=== PATIENT | female | born 1965 | race Caucasian/White ===

== ENCOUNTER 2017-11-23 17:48 | Inpatient (IN) | payer MEDICAID | END 2017-11-25 17:00 | disposition home or self-care (01) | DRG 494 | LOC: D.ER 17:48 → D.SDCHOLD 20:53 → D.MS 21:20 | PROC: 0QSK04Z Reposition Left Fibula with Internal Fixation Device, Open Approach (ICD-10-PCS; principal; 2017-11-24) | PROC: 0QSH04Z Reposition Left Tibia with Internal Fixation Device, Open Approach (ICD-10-PCS; 2017-11-24) | DX: S82.842A Displaced bimalleolar fracture of left lower leg, initial encounter for closed fracture (principal); X50.1XXA Overexertion from prolonged static or awkward postures, initial encounter ==

== ENCOUNTER 2017-11-27 08:59 | Emergency (ER) | payer MEDICAID ==
[2017-11-23 23:39] VITALS: BMI 28.7
[~2017-11-27 08:59] MED LIST: ELIQUIS2.5 MG PO; HYDROXYZINE HCL50 MG PO; OXYCODONE HCL5 MG PO
[2017-11-27 10:45] LABS: BASOPHILS 0.5 % (0-2); EOSINOPHILS 2.5 % (0-7); HEMATOCRIT 39.7 % (36.0-48.0); HEMOGLOBIN 13.3 g/dL (12-16); IMMATURE GRANULOCYTES 0.3 % (0-5); LYMPHOCYTES 31.9 % (15-50); MCH 31.6 pg (26.0-34.0); MCHC 33.5 g/dL (31.0-37.0); MCV 94.3 fL (80.0-100.0); MEAN PLATELET VOLUME 10.2 fL (7.4-10.4); MONOCYTES 12.1 % (2-11); NEUTROPHILS 52.7 % (40-80); PLATELET COUNT 135 10x3/uL (130-400); RBC 4.21 10x6/uL (4.00-5.40); RDW 14.3 % (11.5-14.5); WBC 7.3 10x3/uL (4.8-10.8)
[2017-11-27 11:01] LABS: ALBUMIN 2.7 g/dL (3.4-5.0); ALKALINE PHOSPHATASE 134 U/L (46-116); ALT (SGPT) 110 U/L (10-68); BILIRUBIN - TOTAL 0.44 mg/dL (0.2-1.3); CALC OSMOLALITY 277 mosm/kg (275-300); CALCIUM 8.4 mg/dL (8.5-10.1); CHLORIDE - SERUM 105 mmol/L (98-107); CREATININE - SERUM 0.8 mg/dL (0.6-1.3); GLUCOSE 120 mg/dL (74-106); POTASSIUM - SERUM 3.6 mmol/L (3.5-5.1); PROTEIN - SERUM 6.8 g/dL (6.4-8.2); SODIUM 138 mmol/L (136-145); UREA NITROGEN 14 mg/dL (7-18); eGFR NON AFRICAN AMERICAN 80 mL/min (90-120)
== END 2017-11-27 10:55 | disposition home or self-care (01) ==
LOC: D.ER 08:59
PROVIDERS: Emergency Medicine
DX: G89.18 Other acute postprocedural pain (principal); F17.200 Nicotine dependence, unspecified, uncomplicated

== ENCOUNTER 2018-02-06 08:14 | Emergency (ER) | payer MEDICAID ==
[2017-11-23 23:39] VITALS: BMI 28.7
[2018-02-06 08:53] LABS: BASOPHILS 0.4 % (0-2); EOSINOPHILS 2.2 % (0-7); HEMATOCRIT 42.4 % (36.0-48.0); HEMOGLOBIN 14.5 g/dL (12-16); IMMATURE GRANULOCYTES 0.2 % (0-5); LYMPHOCYTES 40.2 % (15-50); MCH 32.7 pg (26.0-34.0); MCHC 34.2 g/dL (31.0-37.0); MCV 95.7 fL (80.0-100.0); MEAN PLATELET VOLUME 10.6 fL (7.4-10.4); MONOCYTES 11.8 % (2-11); NEUTROPHILS 45.2 % (40-80); PLATELET COUNT 120 10x3/uL (130-400); RBC 4.43 10x6/uL (4.00-5.40); RDW 18.1 % (11.5-14.5); WBC 5.5 10x3/uL (4.8-10.8)
[2018-02-06 08:59] LABS: APPEARANCE HAZY (CLEAR); BACTERIA MANY /hpf (NONE SEEN); BILIRUBIN NEGATIVE (NEGATIVE); COLOR DK YELLOW (YELLOW); GLUCOSE NEGATIVE (NEGATIVE); KETONE NEGATIVE (NEGATIVE); MUCUS <1+ /lpf (NONE SEEN); NITRITE NEGATIVE (NEGATIVE); PROTEIN NEGATIVE (NEGATIVE); SPECIFIC GRAVITY 1.015 (1.005-1.020)
[2018-02-06 09:09] LABS: ALBUMIN 2.8 g/dL (3.4-5.0); ALKALINE PHOSPHATASE 241 U/L (46-116); ALT (SGPT) 240 U/L (10-68); BILIRUBIN - TOTAL 2.03 mg/dL (0.2-1.3); CALC OSMOLALITY 280 mosm/kg (275-300); CALCIUM 8.9 mg/dL (8.5-10.1); CARBON DIOXIDE 26.7 mmol/L (21.0-32.0); CHLORIDE - SERUM 107 mmol/L (98-107); CREATININE - SERUM 0.8 mg/dL (0.6-1.3); GLUCOSE 132 mg/dL (74-106); POTASSIUM - SERUM 3.7 mmol/L (3.5-5.1); PROTEIN - SERUM 7.8 g/dL (6.4-8.2); SODIUM 140 mmol/L (136-145); UREA NITROGEN 13 mg/dL (7-18); eGFR NON AFRICAN AMERICAN 80 mL/min (90-120)
[2018-02-06 09:12] LABS: AMYLASE - SERUM 54 U/L (25-115); LIPASE 159 U/L (73-393)
[2018-02-06 09:13] LABS: TROPONIN-I < 0.017 ng/mL (0.000-0.060)
== END 2018-02-06 12:21 | disposition home or self-care (01) ==
LOC: D.ER 08:14
PROVIDERS: Family Medicine
DX: R10.13 Epigastric pain (principal); N39.0 Urinary tract infection, site not specified

== ENCOUNTER 2018-03-07 10:26 | Emergency (ER) | payer MEDICAID ==
[2017-11-23 23:39] VITALS: BMI 28.7
== END 2018-03-07 11:55 | disposition home or self-care (01) ==
LOC: D.ER 10:26
DX: S93.402A Sprain of unspecified ligament of left ankle, initial encounter (principal); W18.31XA Fall on same level due to stepping on an object, initial encounter; Y93.89 Activity, other specified; Y92.019 Unspecified place in single-family (private) house as the place of occurrence of the external cause